=== PATIENT | male | born 1985 | race Caucasian/White ===

== ENCOUNTER 2017-04-22 10:06 | Emergency (ER) | payer MEDICAID ==
[~2017-04-22] VITALS: Ht 180.3 cm; Wt 71.0 kg
[2017-04-22 12:21] LABS: CLARITY URINE CLEAR (CLEAR); COLOR URINE YELLOW (YELLOW); GLUCOSE URINE NEGATIVE (NEGATIVE); KETONES URINE NEGATIVE (NEGATIVE); LEUKOCYTE ESTERASE URINE NEGATIVE (NEGATIVE); NITRITE URINE NEGATIVE (NEGATIVE); OCCULT BLOOD URINE NEGATIVE (NEGATIVE); PROTEIN URINE NEGATIVE (NEGATIVE); SPECIFIC GRAVITY URINE 1.009 (1.005-1.030); UROBILINOGEN URINE 0.2 E.U./dL (0.2-1.0)
[2017-04-22 12:42] LABS: *AMPHETAMINES SCREEN URINE NEGATIVE (NEGATIVE); *BARBITURATES SCREEN URINE NEGATIVE (NEGATIVE); *BENZODIAZEPINES SCREEN URINE NEGATIVE (NEGATIVE); *COCAINE SCREEN URINE NEGATIVE (NEGATIVE); CANNABINOID URINE SCREEN PRESUMTIVE POSITIVE (NEGATIVE); METHADONE URINE SCREEN NEGATIVE (NEGATIVE); OPIATES URINE SCREEN NEGATIVE (NEGATIVE); PHENCYCLIDINE URINE SCREEN NEGATIVE (NEGATIVE)
[2017-04-22 13:21] LABS: BASOPHILS % 1.2 % (0.0-2.0); EOSINOPHILS % 2.9 % (0.0-5.0); HEMATOCRIT. 43.1 % (42.0-52.0); HEMOGLOBIN. 14.6 g/dL (14.0-18.0); LYMPHOCYTES % 32.9 % (20.0-50.0); MEAN CORPUSCULAR VOLUME 88.9 fL (80.0-94.0); MEAN PLATELET VOLUME 8.7 fl (7.4-10.4); MONOCYTES % 6.7 % (2.0-8.0); NEUTROPHILS % 56.3 % (40.0-76.0); PLATELET 213 x1000/uL (130-400); RED BLOOD CELL COUNT 4.85 mill/uL (4.7-6.1); RED CELL DISTRIBUTION WIDTH 13.6 % (11.6-14.6)
[2017-04-22 13:35] LABS: CARBON DIOXIDE 30 mEq/L (21-32); CHLORIDE 106 mEq/L (98-107); ETHANOL BLOOD < 10 mg/dL
[2017-04-22 14:35] VITALS: BP 99/56
== END 2017-04-22 14:38 | disposition home or self-care (01) ==
LOC: ER 10:26
DX: R20.9 Unspecified disturbances of skin sensation (principal); M54.5 Low back pain; M54.32 Sciatica, left side; M25.512 Pain in left shoulder; F17.200 Nicotine dependence, unspecified, uncomplicated
CPT/HCPCS: 36415; 72100; 72125; 80053; 80305; 81003; 85025; 99285; G0482

== ENCOUNTER 2018-03-01 07:00 | Emergency (ER) | payer MEDICAID, OTHER ==
[~2018-03-01] VITALS: Ht 182.9 cm; Wt 79.0 kg
[2018-03-01] MEDS ORDERED: SODIUM CHLORIDE 0.9% 1,000 ML IV ONE (07:24)
[2018-03-01] MEDS ORDERED: LAMOTRIGINE 100MG TABLET PO STA (07:24)
[2018-03-01] MEDS ORDERED: LEVETIRACETAM 500MG TABLET PO ONE (07:30)
[2018-03-01 07:55] LABS: BASOPHILS % 1.1 % (0.0-2.0); EOSINOPHILS % 2.5 % (0.0-5.0); HEMATOCRIT. 43.8 % (42.0-52.0); HEMOGLOBIN. 14.7 g/dL (14.0-18.0); LYMPHOCYTES % 24.6 % (20.0-50.0); MEAN CORPUSCULAR HEMOGLOBIN 29.7 pg (28.0-32.0); MEAN CORPUSCULAR VOLUME 88.6 fL (80.0-94.0); MEAN PLATELET VOLUME 8.7 fl (7.4-10.4); MONOCYTES % 8.5 % (2.0-8.0); NEUTROPHILS % 63.3 % (40.0-76.0); PLATELET 260 x1000/uL (130-400); RED BLOOD CELL COUNT 4.95 mill/uL (4.7-6.1); RED CELL DISTRIBUTION WIDTH 13.3 % (11.6-14.6)
[2018-03-01 07:58] LABS: CHLORIDE 104 mEq/L (98-107)
[2018-03-01 09:21] VITALS: BP 92/62
== END 2018-03-01 09:24 | disposition home or self-care (01) ==
LOC: ER 07:25
DX: R56.9 Unspecified convulsions (principal); M79.7 Fibromyalgia
CPT/HCPCS: 36415; 80053; 85025; 99284; J7030

== ENCOUNTER 2019-01-08 08:19 | Emergency (ER) | payer MEDICAID ==
[~2019-01-08] VITALS: Ht 182.9 cm; Wt 72.0 kg
[2019-01-08] MEDS ORDERED: LAM2 PO (08:43)
[2019-01-08] MEDS ORDERED: KEPP500 PO (08:43)
[2019-01-08] MEDS ORDERED: KETOROLAC 15MG/ML VIAL IM ONE (10:00)
[2019-01-08 10:04] VITALS: BP 115/69
== END 2019-01-08 10:06 | disposition home or self-care (01) ==
LOC: ER 08:19
DX: M54.5 Low back pain (principal); R56.9 Unspecified convulsions; M79.7 Fibromyalgia; F12.10 Cannabis abuse, uncomplicated
CPT/HCPCS: 96372; 99283; J1885; Z7610